=== PATIENT | female | born 1950 | race Caucasian/White ===

== ENCOUNTER 2017-04-14 07:29 | Emergency (ER) | payer OTHER, MEDICARE ==
[2017-04-14 07:40] VITALS: BP 141/82; PULSE 81; TEMP 97.5; BMI 23.9
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
== END 2017-04-14 09:11 | disposition home or self-care (01) ==
LOC: FER 07:29
PROC: 2W3DX1Z Immobilization of Left Lower Arm using Splint (ICD-10-PCS; principal; 2017-04-14)
DX: S60.212A Contusion of left wrist, initial encounter (principal); W10.8XXA Fall (on) (from) other stairs and steps, initial encounter; Y93.89 Activity, other specified; Y92.9 Unspecified place or not applicable
CPT/HCPCS: 29125; 71020-TC; 73030-TC-LT; 73110-TC-LT; 73523-TC; 99281-25

== ENCOUNTER 2018-03-29 07:05 | Day surgery (SDC) | payer OTHER, MEDICARE ==
[2018-03-23 11:33] VITALS: BMI 20.2
[2018-03-29] MEDS ORDERED: LIDOCAINE HCL/PF 2% SDV 5ML VIAL ONE (08:24)
[2018-03-29] MEDS ORDERED: PROPOFOL 20 ML ONE ×5 (08:25→08:27)
[2018-03-29 09:12] VITALS: BP 101/54; PULSE 61; TEMP 98
== END 2018-03-29 09:19 | disposition home or self-care (01) ==
LOC: FASU-ENDO 07:05
PROVIDERS: ATTEND Internal Medicine Gastroenterology
PROC: 0DJD8ZZ Inspection of Lower Intestinal Tract, Via Natural or Artificial Opening Endoscopic (ICD-10-PCS; principal; 2018-03-29 08:00)
DX: Z12.11 Encounter for screening for malignant neoplasm of colon (principal); K57.30 Diverticulosis of large intestine without perforation or abscess without bleeding

== ENCOUNTER 2020-09-08 07:09 | Emergency (ER) | payer MEDICARE, OTHER ==
[2020-09-08 07:15] VITALS: BP 107/64; PULSE 78; TEMP 97.9; BMI 21.0
[2020-09-08] MEDS ORDERED: ACETAMINOPHEN 500 MG TABLET (FP) PO ONE (07:27)
[2020-09-08] MEDS ORDERED: LIDOCAINE 5% TOPICAL PATCH TP ONE (07:29)
[2020-09-08] MEDS ORDERED: ACETAMINOPHEN 500 MG TABLET (FP) ONE (07:54)
[2020-09-08] MEDS ORDERED: LIDOCAINE 5% TOPICAL PATCH ONE (07:55)
[2020-09-08] MEDS ORDERED: LIDOCAINE PATCH REMOVAL MC SCH (22:00)
== END 2020-09-08 08:34 | disposition home or self-care (01) ==
LOC: FER 07:09
DX: M54.9 Dorsalgia, unspecified (principal)
CPT/HCPCS: 72100-TC-FY; 72170-TC-FY; 99284-25